=== PATIENT | female | born 1940 | race Caucasian/White ===

== ENCOUNTER 2019-11-17 17:51 | Outpatient (CLI) | payer MEDICARE | END 2019-11-17 17:52 | disposition short-term general hospital (02) | LOC: EMS 17:51 | PROVIDERS: ATTEND Surgery | DX: R41.0 Disorientation, unspecified (principal); R53.1 Weakness; R19.7 Diarrhea, unspecified | CPT/HCPCS: A0425; A0429 ==

== ENCOUNTER 2019-11-24 13:03 | Outpatient (CLI) | payer MEDICARE, BC | END 2019-11-24 13:04 | disposition short-term general hospital (02) | LOC: EMS 13:03 | PROVIDERS: ATTEND Surgery | DX: R53.1 Weakness (principal) | CPT/HCPCS: A0425; A0429 ==